=== PATIENT | female | born 1940 | race Caucasian/White ===

== ENCOUNTER → 2016-08-18 | Outpatient (CLI) | payer MEDICARE ==
--- NOTE | 2016-08-19 11:43 | MM ---
Reason for exam: screening (asymptomatic). Physical Findings: A clinical breast exam by your physician is recommended on an annual basis and results should be correlated with mammographic findings. MG Screening Mammo w CAD Bilateral CC and MLO view(s) were taken. No prior studies available for comparison. The breast tissue is heterogeneously dense. This may lower the sensitivity of mammography. Finding: There are typically benign vascular, round, coarse, diffuse/scattered calcifications in both breasts. There is no dominant lesion. ASSESSMENT: Benign, BI-RAD 2 RECOMMENDATION: Routine screening mammogram of both breasts in 1 year.
== END | disposition home or self-care (01) ==
LOC: RADMAMWWP 10:34
PROVIDERS: ATTEND Internal Medicine
DX: Z12.31 Encounter for screening mammogram for malignant neoplasm of breast (principal)

== ENCOUNTER 2016-12-14 13:00 | Inpatient (IN) | payer MEDICARE ==
[2016-12-14] MEDS ORDERED: PANTOPRAZOLE 40 MG/10 ML VIAL IVP STA (13:51)
--- NOTE | 2016-12-14 13:56 | ED ---
General Adult HPI - General Chief complaint: Recheck/Abnormal Lab/Rx Stated complaint: low blood pressure/wounds on legs Time Seen by Provider: 12/14/16 13:30 Source: patient, family, RN notes reviewed Mode of arrival: wheelchair Limitations: altered mental status - History of Present Illness Initial comments: Patient is a pleasantly demented 76-year-old female presenting to the emergency department with concerns for GI bleed and low blood pressure. Patient is extremely poor historian. Patient admits to having some swelling of her legs and fatigue however offers no further significant history. Apparently there was some concern for lower GI bleed. Niece and are present who are also poor historians and have little ability to offer information. Unclear how long bleeding has been 4. Patient does have reported leg wounds that she has been seen her doctor for for a few weeks. Patient had visiting nurse come to the house today for the first time. - Related Data Home Medications Medication Instructions Recorded Confirmed Atorvastatin [Lipitor] 40 mg PO DAILY 02/07/14 12/14/16 Carvedilol [Coreg*] 12.5 mg PO BID 02/07/14 12/14/16 amLODIPine BESYLATE [Norvasc] 5 mg PO DAILY 02/07/14 12/14/16 Amiodarone [Cordarone] 200 mg PO DAILY 05/23/14 12/14/16 Rivaroxaban [Xarelto] 20 mg PO DAILY 05/23/14 12/14/16 Spironolactone [Aldactone] 25 mg PO DAILY 05/23/14 12/14/16 Aspirin EC [Ecotrin Low Dose] 81 mg PO DAILY 12/14/16 12/14/16 Benzonatate [Tessalon Perles] 200 mg PO TID PRN 12/14/16 12/14/16 Furosemide [Lasix] 40 mg PO DAILY 12/14/16 12/14/16 Allergies Allergy/AdvReac Type Severity Reaction Status Date / Time adhesive Allergy Intermediate SKIN Verified 12/14/16 14:47 BLISTERS epinephrine AdvReac Severe Rapid Verified 12/14/16 14:47 Heart Rate codeine AdvReac Intermediate Nausea & Verified 12/14/16 14:47 Vomiting Review of Systems ROS Statement: Those systems with pertinent positive or pertinent negative responses have been documented in the HPI. ROS Other: All systems not noted in ROS Statement are negative. Constitutional: Denies: fever Eyes: Denies: eye pain ENT: Denies: ear pain Respiratory: Denies: cough Cardiovascular: Denies: chest pain Endocrine: Reports: fatigue Gastrointestinal: Reports: melena. Denies: abdominal pain Genitourinary: Denies: urgency Skin: Denies: rash Neurological: Denies: headache Past Medical History Past Medical History: Coronary Artery Disease (CAD), Chest Pain / Angina, Heart Failure, Hearing Disorder / Deafness, Hypertension Additional Past Medical History / Comment(s): choleycystectomy,2 stents heart, tubal preg.,teeth removed,arthritis History of Any Multi-Drug Resistant Organisms: None Reported Past Surgical History: Cholecystectomy, Heart Catheterization With Stent, Tubal Ligation Additional Past Surgical History / Comment(s): teeth removed Past Anesthesia/Blood Transfusion Reactions: No Reported Reaction Additional Past Anesthesia/Blood Transfusion Reaction / Comment(s): trouble recovering after choley. Date of Last Stent Placement:: 09/08/2010 Past Psychological History: No Psychological Hx Reported Smoking Status: Never smoker Past Drug Use History: None Reported - Past Family History Father Family Medical History: No Reported History Mother Family Medical History: Coronary Artery Disease (CAD) Additional Family Medical History / Comment(s): venous insufficiency General Exam Limitations: no limitations General appearance: alert, in no apparent distress Head exam: Present: atraumatic Eye exam: Present: normal appearance, PERRL, other (Pale conjunctiva) ENT exam: Present: normal oropharynx Neck exam: Present: normal inspection. Absent: tenderness Respiratory exam: Present: normal lung sounds bilaterally Cardiovascular Exam: Present: regular rate, normal rhythm, systolic murmur GI/Abdominal exam: Present: soft. Absent: distended, tenderness Rectal exam: Present: normal inspection (Normal appearing stool) Extremities exam: Present: pedal edema (+3 bilateral), other (Multiple bilateral lower leg wounds stage I through stage III. There is approximately 5 areas of small bullae.) Neurological exam: Present: alert, altered Expanded Patient oriented to: Present: time Psychiatric exam: Present: normal affect, normal mood Skin exam: Absent: rash Course Vital Signs 12/14/16 12/14/16 12/14/16 13:02 13:45 14:15 Temperature 97.2 F L Pulse Rate 60 72 68 Respiratory 18 16 14 Rate Blood Pressure 120/58 175/75 137/61 O2 Sat by Pulse 95 98 100 Oximetry 12/14/16 14:49 Temperature 97.3 F L Pulse Rate 67 Respiratory 15 Rate Blood Pressure 139/61 O2 Sat by Pulse 100 Oximetry - Reevaluation(s) Reevaluation #1: 12/14/16 15:42 Patient reevaluated. Patient and family updated. Case discussed with Dr. Mondragon. Admission orders written. Cardiology consult placed. Dr. toledo has been paged for admission for Dr. Mondragon. 12/14/16 15:44 Cardiology has been paged regarding whether or not to use heparin. Patient has arty on Xarelto. 12/14/16 15:45 Case discussed with practitioner Velma, who will admit for Dr. toledo. 12/14/16 15:49 Dr. Bryant is currently doing a procedure and will call back. EKG Findings - EKG Comments: EKG Findings:: Normal sinus rhythm 65. ND 204, first degree AV block. QRS 88. QT 462. QTC 480. Normal axis. Normal QRS. Nonspecific ST-T. Medical Decision Making - Lab Data Result diagrams: 12/14/16 13:45 12/14/16 13:45 Lab Results 12/14/16 12/14/16 12/14/16 Range/Units 13:45 13:45 13:45 WBC 7.9 (3.8-10.6) k/uL RBC 3.52 L (3.80-5.40) m/uL Hgb 10.8 L (11.4-16.0) gm/dL Hct 34.6 (34.0-46.0) % MCV 98.4 (80.0-100.0) fL MCH 30.7 (25.0-35.0) pg MCHC 31.2 (31.0-37.0) g/dL RDW 14.4 (11.5-15.5) % Plt Count 282 (150-450) k/uL Neutrophils % 58 % Lymphocytes % 19 % Monocytes % 9 % Eosinophils % 12 % Basophils % 1 % Neutrophils # 4.6 (1.3-7.7) k/uL Lymphocytes # 1.5 (1.0-4.8) k/uL Monocytes # 0.7 (0-1.0) k/uL Eosinophils # 0.9 H (0-0.7) k/uL Basophils # 0.0 (0-0.2) k/uL PT (9.0-12.0) sec INR (<1.1) APTT (22.0-30.0) sec Sodium 139 (137-145) mmol/L Potassium 3.9 (3.5-5.1) mmol/L Chloride 107 (98-107) mmol/L Carbon Dioxide 25 (22-30) mmol/L Anion Gap 7 mmol/L BUN 19 H (7-17) mg/dL Creatinine 1.02 (0.52-1.04) mg/dL Est GFR (MDRD) Af Amer >60 (>60 ml/min/1.73 sqM) Est GFR (MDRD) Non-Af 53 (>60 ml/min/1.73 sqM) Glucose 100 H (74-99) mg/dL Calcium 8.4 (8.4-10.2) mg/dL Total Bilirubin 0.9 (0.2-1.3) mg/dL AST 33 (14-36) U/L ALT 30 (9-52) U/L Alkaline Phosphatase 91 (38-126) U/L Total Creatine Kinase 103 (30-135) U/L CK-MB (CK-2) 1.4 (0.0-2.4) ng/mL CK-MB (CK-2) Rel Index 1.4 Troponin I 0.426 H* (0.000-0.034) ng/mL Total Protein 5.9 L (6.3-8.2) g/dL Albumin 2.8 L (3.5-5.0) g/dL Stool Occult Blood (Negative) 12/14/16 12/14/16 Range/Units 13:45 13:45 WBC (3.8-10.6) k/uL RBC (3.80-5.40) m/uL Hgb (11.4-16.0) gm/dL Hct (34.0-46.0) % MCV (80.0-100.0) fL MCH (25.0-35.0) pg MCHC (31.0-37.0) g/dL RDW (11.5-15.5) % Plt Count (150-450) k/uL Neutrophils % % Lymphocytes % % Monocytes % % Eosinophils % % Basophils % % Neutrophils # (1.3-7.7) k/uL Lymphocytes # (1.0-4.8) k/uL Monocytes # (0-1.0) k/uL Eosinophils # (0-0.7) k/uL Basophils # (0-0.2) k/uL PT 17.2 H (9.0-12.0) sec INR 1.8 (<1.1) APTT 34.4 H (22.0-30.0) sec Sodium (137-145) mmol/L Potassium (3.5-5.1) mmol/L Chloride (98-107) mmol/L Carbon Dioxide (22-30) mmol/L Anion Gap mmol/L BUN (7-17) mg/dL Creatinine (0.52-1.04) mg/dL Est GFR (MDRD) Af Amer (>60 ml/min/1.73 sqM) Est GFR (MDRD) Non-Af (>60 ml/min/1.73 sqM) Glucose (74-99) mg/dL Calcium (8.4-10.2) mg/dL Total Bilirubin (0.2-1.3) mg/dL AST (14-36) U/L ALT (9-52) U/L Alkaline Phosphatase (38-126) U/L Total Creatine Kinase (30-135) U/L CK-MB (CK-2) (0.0-2.4) ng/mL CK-MB (CK-2) Rel Index Troponin I (0.000-0.034) ng/mL Total Protein (6.3-8.2) g/dL Albumin (3.5-5.0) g/dL Stool Occult Blood Negative (Negative) Disposition Clinical Impression: Leg wound, right, Leg wound, left, Hypotensive episode, Elevated troponin Disposition: ADMITTED IP TO THIS HOSP Referrals: Dong Birmingham MD [Primary Care Provider] - 1-2 days Time of Disposition: 15:47
[2016-12-14 15:03] LABS: Partial Thromboplastin Time 34.4 sec (22.0-30.0)
[2016-12-14 15:04] LABS: ALT 30 U/L (9-52); AST 33 U/L (14-36); Alkaline Phosphatase 91 U/L (38-126); Anion Gap 7 mmol/L; Blood Urea Nitrogen 19 mg/dL (7-17); Calcium 8.4 mg/dL (8.4-10.2); Carbon Dioxide 25 mmol/L (22-30); Chloride 107 mmol/L (98-107); Glucose 100 mg/dL (74-99); Non-African American GFR(MDRD) 53 (>60 ml/min/1.73 sqM); Potassium 3.9 mmol/L (3.5-5.1); Sodium 139 mmol/L (137-145); Total Bilirubin 0.9 mg/dL (0.2-1.3); Total Protein 5.9 g/dL (6.3-8.2)
[2016-12-14 15:09] LABS: Basophils % (A) 1 %; CH 31.3; Eosinophils # (A) 0.9 k/uL (0-0.7); Eosinophils % (A) 12 %; HCT 34.6 % (34.0-46.0); HDW 2.49; HGB 10.8 gm/dL (11.4-16.0); Luc # (Auto) 0.19; Luc % (Auto) 2; Lymphocytes # (A) 1.5 k/uL (1.0-4.8); Lymphocytes % (A) 19 %; MCH 30.7 pg (25.0-35.0); MCHC 31.2 g/dL (31.0-37.0); MCV 98.4 fL (80.0-100.0); Mean Platelet Volume 7.4; Monocytes # (A) 0.7 k/uL (0-1.0); Monocytes % (A) 9 %; Neutrophils # (A) 4.6 k/uL (1.3-7.7); Neutrophils % (A) 58 %; RBC 3.52 m/uL (3.80-5.40); RDW 14.4 % (11.5-15.5); WBC 7.9 k/uL (3.8-10.6); WBC (Perox) 8.83
[2016-12-14 15:10] LABS: INR 1.8 (<1.1); Prothrombin Time 17.2 sec (9.0-12.0)
[2016-12-14 15:31] LABS: Creatine Kinase MB 1.4 ng/mL (0.0-2.4)
[2016-12-14 15:36] LABS: Troponin I 0.426 ng/mL (0.000-0.034)
[2016-12-14] MEDS ORDERED: NITROGLYCERIN SL TABS 0.4 MG TAB SUBLINGUAL PRN (15:47)
[2016-12-14] MEDS ORDERED: ASPIRIN 81 MG CHEW PO STA (15:47)
--- NOTE | 2016-12-14 16:14 | XR ---
EXAMINATION TYPE: XR chest 2V DATE OF EXAM: 12/14/2016 4:09 PM COMPARISON: 05/15/2014 INDICATION: Open wound on leg TECHNIQUE: 2 view chest FINDINGS: The heart size is enlarged. The pulmonary vasculature is normal. No suspicious focal consolidation is evident. IMPRESSION: 1. Cardiomegaly
[2016-12-14] MEDS ORDERED: FUROSEMIDE 10 MG/ML 4 ML VIAL IV STA (16:47)
[2016-12-14] MEDS: NITROGLYCERIN OINT 1 INCH/GM PACKET TOPICAL SCH (17:27)
--- NOTE | 2016-12-14 17:48 | P.PN ---
Progress Note - Text Page per Dr. Quigley regarding this patient. 76-year-old female evaluated by visiting nurse with dementia who was brought in for possible GI bleed because of dark stools and low blood pressure. Hemoglobin is stable. Leg wounds leg ulcers , patient unable to give a history , family is not able to give a history No evidence for low blood pressure here, no evidence for tachycardia Hemoglobin 10.8 Stage III kidney disease Unclear as to why her troponin level was sent Troponin 0.4 We will reevaluate the patient later
[2016-12-14] MEDS ORDERED: BENZONATATE 100 MG CAP PO PRN (21:43)
[2016-12-15] MEDS: NITROGLYCERIN OINT 1 INCH/GM PACKET TOPICAL SCH ×5 (01:25→23:12)
[2016-12-15] MEDS: CARVEDILOL 12.5 MG TAB PO SCH ×2 (06:32→15:41)
[2016-12-15 07:40] LABS: Cholesterol 171 mg/dL (<200); HDL Cholesterol 28 mg/dL (40-60); Triglycerides 128 mg/dL (<150)
[2016-12-15] MEDS: SPIRONOLACTONE 25 MG TAB PO SCH (08:34)
[2016-12-15] MEDS: AMIODARONE 200 MG TAB PO SCH (08:34)
[2016-12-15] MEDS: ATORVASTATIN 40 MG TAB PO SCH (08:34)
[2016-12-15] MEDS: FUROSEMIDE 40 MG TAB PO SCH (08:34)
[2016-12-15] MEDS: amLODIPine 5 MG TAB PO SCH ×2 (08:34→11:21)
[2016-12-15] MEDS ORDERED: RIVAROXABAN 10 MG TAB PO SCH (09:00)
[2016-12-15] MEDS ORDERED: ASPIRIN 325 MG TAB PO SCH (09:00)
--- NOTE | 2016-12-15 09:24 | P.CONS ---
History of Present Illness - Reason for Consult Consult date: 12/15/16 Lower extremity wounds - History of Present Illness This is a 76-year-old female who recently started seen Dr. Hernandez in the wound healing Center for venous stasis ulcers to bilateral lower extremities. Her visit there was on December 11 and she underwent an I&D and current wound care is Aquasol with foam compression dressing. Home care had been arranged. Patient was brought into [facility] emergency center due to concerns for GI bleed and low blood pressure and leg swelling. Chest x-ray showed cardiomegaly. It is noted she has history of paroxysmal atrial fibrillation and is on amiodarone and Xarelto. Her hemoglobin was 10.8. White count 7.9. Troponin was 0.4-6. Occult blood was negative. BUN 19 and creatinine 1.02 with GFR of 53. Patient has been admitted to the selective care unit. She has been seen by Dr. Bryant. Patient is currently in a sinus rhythm. Patient denies any problems with her legs or increased pain to her legs. Review of Systems All systems: negative Constitutional: Denies chills, Denies fever Eyes: denies blurred vision, denies pain Ears, nose, mouth and throat: Denies dental pain, Denies headache, Denies mouth pain, Denies sore throat Cardiovascular: Denies chest pain, Denies dyspnea on exertion, Denies edema, Denies lightheadedness, Denies shortness of breath, Denies syncope Respiratory: Denies cough, Denies cough with sputum, Denies dyspnea, Denies excessive sputum, Denies hemoptysis, Denies home oxygen Gastrointestinal: Denies abdominal pain, Denies diarrhea, Denies melena, Denies nausea, Denies vomiting Genitourinary: Denies dysuria, Denies hematuria Musculoskeletal: Denies myalgias Integumentary: Reports wounds, Denies pruritus, Denies rash Neurological: Denies numbness, Denies weakness Psychiatric: Denies anxiety, Denies depression Endocrine: Denies fatigue, Denies weight change Past Medical History Past Medical History: Asthma, Coronary Artery Disease (CAD), Chest Pain / Angina , Hearing Disorder / Deafness, Hyperlipidemia, Hypertension, Osteoarthritis (OA) Additional Past Medical History / Comment(s): pt poor historian most info taken from [facility].PAST tubal preg,migraines, afib,migraines,c/p,gerd,murmur,lumbee, few teeth left, "stumbles easily" History of Any Multi-Drug Resistant Organisms: None Reported Past Surgical History: Cholecystectomy, Heart Catheterization With Stent, Tubal Ligation Additional Past Surgical History / Comment(s): tooth extractions, 04/2014 waqas/ cardioversion for a fib,d&c(past tubal pregancy) Past Anesthesia/Blood Transfusion Reactions: No Reported Reaction Additional Past Anesthesia/Blood Transfusion Reaction / Comm: trouble recovering after choley. Date of Last Stent Placement:: 09/08/2010 Past Psychological History: No Psychological Hx Reported Additional Psychological History / Comment(s): lives with and 1 pet dog. Smoking Status: Never smoker Past Alcohol Use History: None Reported Past Drug Use History: None Reported - Past Family History Father Family Medical History: No Reported History Mother Family Medical History: Coronary Artery Disease (CAD) Additional Family Medical History / Comment(s): venous insufficiency Medications and Allergies Home Medications Medication Instructions Recorded Confirmed Type Atorvastatin [Lipitor] 40 mg PO DAILY 02/07/14 12/14/16 History Carvedilol [Coreg*] 12.5 mg PO BID 02/07/14 12/14/16 History amLODIPine BESYLATE [Norvasc] 5 mg PO DAILY 02/07/14 12/14/16 History Amiodarone [Cordarone] 200 mg PO DAILY 05/23/14 12/14/16 History Rivaroxaban [Xarelto] 20 mg PO DAILY 05/23/14 12/14/16 History Spironolactone [Aldactone] 25 mg PO DAILY 05/23/14 12/14/16 History Aspirin EC [Ecotrin Low Dose] 81 mg PO DAILY 12/14/16 12/14/16 History Benzonatate [Tessalon Perles] 200 mg PO TID PRN 12/14/16 12/14/16 History Furosemide [Lasix] 40 mg PO DAILY 12/14/16 12/14/16 History Allergies Allergy/AdvReac Type Severity Reaction Status Date / Time adhesive Allergy Intermediate SKIN Verified 12/14/16 14:47 BLISTERS epinephrine AdvReac Severe Rapid Verified 12/14/16 14:47 Heart Rate codeine AdvReac Intermediate Nausea & Verified 12/14/16 14:47 Vomiting Physical Exam Vitals: Vital Signs Temp Pulse Pulse Resp BP BP Pulse Ox 12/15/16 08:00 97.4 F L 61 16 101/47 96 12/15/16 04:00 97.2 F L 63 16 128/57 98 12/15/16 00:00 97.2 F L 69 16 109/57 96 12/14/16 20:00 97.9 F 58 L 16 114/58 98 12/14/16 17:56 97.4 F L 63 18 141/63 95 12/14/16 17:29 67 16 99 12/14/16 16:56 97.3 F L 63 18 171/69 97 12/14/16 15:58 66 17 143/62 100 12/14/16 14:49 97.3 F L 67 15 139/61 100 12/14/16 14:15 68 14 137/61 100 12/14/16 13:45 72 16 175/75 98 12/14/16 13:02 97.2 F L 60 18 120/58 95 Intake and Output 12/14/16 12/15/16 12/15/16 22:59 06:59 14:59 Intake Total 10 10 360 Output Total 950 Balance 10 -940 360 Intake: IV 10 10 0.9% NS FLUSH 10 mL 10 10 Oral 360 Output: Urine 950 Other: Voiding Method Toilet # Voids 2 Weight 85.9 kg Gen: This is a 76-year-old morbidly obese female. She is lying in bed and appears to be in no acute distress. No respiratory distress is noted. Patient was sleeping and awakens easily to verbal stimuli. HEENT: Head is atraumatic, normocephalic. Pupils equal, round. Sclerae is anicteric. Oral mucous membranes are slightly dry. NECK: Supple. No JVD. No lymphadenopathy. No thyromegaly. LUNGS: Clear to auscultation. No wheezes or rhonchi. No intercostal retractions. HEART: Regular rate and rhythm. Harsh systolic murmur left sternal border. ABDOMEN: Soft. Bowel sounds are present. No masses. No tenderness. EXTREMITIES: 3+ bilateral pedal edema. Dressings in place to the bilateral lower extremity is not removed for evaluation. Evaluation deferred to Dr. Gupta.. NEUROLOGICAL: Patient is awake, alert and oriented x1. Cranial nerves 2 through 12 are grossly intact. Results Results: Laboratory Results WBC 7.9 k/uL (3.8-10.6) 12/14/16 13:45 RBC 3.52 m/uL (3.80-5.40) L 12/14/16 13:45 Hgb 10.8 gm/dL (11.4-16.0) L 12/14/16 13:45 Hct 34.6 % (34.0-46.0) 12/14/16 13:45 MCV 98.4 fL (80.0-100.0) 12/14/16 13:45 MCH 30.7 pg (25.0-35.0) 12/14/16 13:45 MCHC 31.2 g/dL (31.0-37.0) 12/14/16 13:45 RDW 14.4 % (11.5-15.5) 12/14/16 13:45 Plt Count 282 k/uL (150-450) 12/14/16 13:45 Neutrophils % 58 % 12/14/16 13:45 Lymphocytes % 19 % 12/14/16 13:45 Monocytes % 9 % 12/14/16 13:45 Eosinophils % 12 % 12/14/16 13:45 Basophils % 1 % 12/14/16 13:45 Neutrophils # 4.6 k/uL (1.3-7.7) 12/14/16 13:45 Lymphocytes # 1.5 k/uL (1.0-4.8) 12/14/16 13:45 Monocytes # 0.7 k/uL (0-1.0) 12/14/16 13:45 Eosinophils # 0.9 k/uL (0-0.7) H 12/14/16 13:45 Basophils # 0.0 k/uL (0-0.2) 12/14/16 13:45 PT 17.2 sec (9.0-12.0) H 12/14/16 13:45 INR 1.8 (<1.1) 12/14/16 13:45 APTT 34.4 sec (22.0-30.0) H 12/14/16 13:45 Sodium 139 mmol/L (137-145) 12/14/16 13:45 Potassium 3.9 mmol/L (3.5-5.1) 12/14/16 13:45 Chloride 107 mmol/L (98-107) 12/14/16 13:45 Carbon Dioxide 25 mmol/L (22-30) 12/14/16 13:45 Anion Gap 7 mmol/L 12/14/16 13:45 BUN 19 mg/dL (7-17) H 12/14/16 13:45 Creatinine 1.02 mg/dL (0.52-1.04) 12/14/16 13:45 Est GFR (MDRD) Af Amer >60 (>60 ml/min/1.73 sqM) 12/14/16 13:45 Est GFR (MDRD) Non-Af 53 (>60 ml/min/1.73 sqM) 12/14/16 13:45 Glucose 100 mg/dL (74-99) H 12/14/16 13:45 Calcium 8.4 mg/dL (8.4-10.2) 12/14/16 13:45 Total Bilirubin 0.9 mg/dL (0.2-1.3) 12/14/16 13:45 AST 33 U/L (14-36) 12/14/16 13:45 ALT 30 U/L (9-52) 12/14/16 13:45 Alkaline Phosphatase 91 U/L (38-126) 12/14/16 13:45 Total Creatine Kinase 103 U/L (30-135) 12/14/16 13:45 CK-MB (CK-2) 1.4 ng/mL (0.0-2.4) 12/14/16 13:45 CK-MB (CK-2) Rel Index 1.4 12/14/16 13:45 Troponin I 0.426 ng/mL (0.000-0.034) H* 12/14/16 13:45 NT-Pro-B Natriuret Pep 3190 pg/mL 12/14/16 13:45 Total Protein 5.9 g/dL (6.3-8.2) L 12/14/16 13:45 Albumin 2.8 g/dL (3.5-5.0) L 12/14/16 13:45 Triglycerides 128 mg/dL (<150) 12/15/16 06:23 Cholesterol 171 mg/dL (<200) 12/15/16 06:23 LDL Cholesterol, Calc 117 mg/dL (0-99) H 12/15/16 06:23 HDL Cholesterol 28 mg/dL (40-60) L 12/15/16 06:23 Stool Occult Blood Negative (Negative) 12/14/16 13:45 CBC & Chem 7: 12/14/16 13:45 12/14/16 13:45 Labs: Abnormal Lab Results - Last 24 Hours (Table) 12/14/16 12/14/16 12/14/16 Range/Units 13:45 13:45 13:45 RBC 3.52 L (3.80-5.40) m/uL Hgb 10.8 L (11.4-16.0) gm/dL Eosinophils # 0.9 H (0-0.7) k/uL PT (9.0-12.0) sec APTT (22.0-30.0) sec BUN 19 H (7-17) mg/dL Glucose 100 H (74-99) mg/dL Troponin I 0.426 H* (0.000-0.034) ng/mL Total Protein 5.9 L (6.3-8.2) g/dL Albumin 2.8 L (3.5-5.0) g/dL LDL Cholesterol, Calc (0-99) mg/dL HDL Cholesterol (40-60) mg/dL 12/14/16 12/15/16 Range/Units 13:45 06:23 RBC (3.80-5.40) m/uL Hgb (11.4-16.0) gm/dL Eosinophils # (0-0.7) k/uL PT 17.2 H (9.0-12.0) sec APTT 34.4 H (22.0-30.0) sec BUN (7-17) mg/dL Glucose (74-99) mg/dL Troponin I (0.000-0.034) ng/mL Total Protein (6.3-8.2) g/dL Albumin (3.5-5.0) g/dL LDL Cholesterol, Calc 117 H (0-99) mg/dL HDL Cholesterol 28 L (40-60) mg/dL Assessment and Plan Plan: This is a 76-year-old female who presented to the hospital with possible GI bleed. She does have history of paroxysmal atrial fibrillation and is on amiodarone and Xarelto. Patient has seen Dr. Hernandez on one visit for venous stasis ulcers to the bilateral lower extremities and current wound care is Aquasol with foam compressive dressing. No antibiotics are currently in place. Local wound care will be addressed. Continue supportive care. Further recommendations as patient progresses. The above dictated assessment and findings were discussed with Dr. Gupta. The impression and plan of care have been directed as dictated. Racquel Nelson nurse practitioner acting as scribe for Dr. Gupta.
--- NOTE | 2016-12-15 12:27 | P.CRDCN ---
<Brooke Harman E - Last Filed: 12/15/16 12:06> History of Present Illness Consult date: 12/15/16 Requesting physician: Joseph Quiroz Reason for Consult (text): Abnormal troponin Chief complaint: Bilateral leg swelling History of present illness: This is a 76-year-old female with history of dementia, most of the history was obtained from the who is at bedside. He states that the patient was brought to the hospital because of bilateral leg swelling and ulcerations. Apparently there were troponins drawn came back to be abnormal and for this reason a cardiology consultation was requested. Denies any chest pain this morning, according to the she has not been experiencing any chest pain. Patient does have a history of hypertension, hyperlipidemia, prior stent placement, paroxysmal atrial fibrillation, on xarelto at home. Patient is also on Cordarone, Lipitor, Coreg, Lasix, Aldactone, and Norvasc. Most recent echocardiogram with Doppler study performed in 2013 revealed a normal left ventricular systolic function. Pressure on arrival 120/50 with a heart rate in the 60s to 70s, 95% on room air. [place]in on admission 10.8, INR 1.8, ataxia and 3.9, BUN 19, creatinine 1.02. Troponin 0.426. BNP level 3190. The time of my examination, patient is lying comfortably in bed, no complaints. Past Medical History Past Medical History: Asthma, Coronary Artery Disease (CAD), Chest Pain / Angina , Hearing Disorder / Deafness, Hyperlipidemia, Hypertension, Osteoarthritis (OA) Additional Past Medical History / Comment(s): pt poor historian most info taken from [facility].PAST tubal preg,migraines, afib,migraines,c/p,gerd,murmur,[place], few teeth left, "stumbles easily" History of Any Multi-Drug Resistant Organisms: None Reported Past Surgical History: Cholecystectomy, Heart Catheterization With Stent, Tubal Ligation Additional Past Surgical History / Comment(s): tooth extractions, 04/2014 waqas/ cardioversion for a fib,d&c(past tubal pregancy) Past Anesthesia/Blood Transfusion Reactions: No Reported Reaction Additional Past Anesthesia/Blood Transfusion Reaction / Comment(s): trouble recovering after choley. Date of Last Stent Placement:: 09/08/2010 Past Psychological History: No Psychological Hx Reported Additional Psychological History / Comment(s): lives with and 1 pet dog. Smoking Status: Never smoker Past Alcohol Use History: None Reported Past Drug Use History: None Reported - Past Family History Father Family Medical History: No Reported History Mother Family Medical History: Coronary Artery Disease (CAD) Additional Family Medical History / Comment(s): venous insufficiency Medications and Allergies Home Medications Medication Instructions Recorded Confirmed Type Atorvastatin [Lipitor] 40 mg PO DAILY 02/07/14 12/14/16 History Carvedilol [Coreg*] 12.5 mg PO BID 02/07/14 12/14/16 History amLODIPine BESYLATE [Norvasc] 5 mg PO DAILY 02/07/14 12/14/16 History Amiodarone [Cordarone] 200 mg PO DAILY 05/23/14 12/14/16 History Rivaroxaban [Xarelto] 20 mg PO DAILY 05/23/14 12/14/16 History Spironolactone [Aldactone] 25 mg PO DAILY 05/23/14 12/14/16 History Aspirin EC [Ecotrin Low Dose] 81 mg PO DAILY 12/14/16 12/14/16 History Benzonatate [Tessalon Perles] 200 mg PO TID PRN 12/14/16 12/14/16 History Furosemide [Lasix] 40 mg PO DAILY 12/14/16 12/14/16 History Allergies Allergy/AdvReac Type Severity Reaction Status Date / Time adhesive Allergy Intermediate SKIN Verified 12/14/16 14:47 BLISTERS epinephrine AdvReac Severe Rapid Verified 12/14/16 14:47 Heart Rate codeine AdvReac Intermediate Nausea & Verified 12/14/16 14:47 Vomiting Physical Exam Vitals: Vital Signs Temp Pulse Pulse Resp BP BP Pulse Ox 12/15/16 11:22 97 F L 58 L 16 106/51 96 12/15/16 08:00 97.4 F L 61 16 101/47 96 12/15/16 04:00 97.2 F L 63 16 128/57 98 12/15/16 00:00 97.2 F L 69 16 109/57 96 12/14/16 20:00 97.9 F 58 L 16 114/58 98 12/14/16 17:56 97.4 F L 63 18 141/63 95 12/14/16 17:29 67 16 99 12/14/16 16:56 97.3 F L 63 18 171/69 97 12/14/16 15:58 66 17 143/62 100 12/14/16 14:49 97.3 F L 67 15 139/61 100 12/14/16 14:15 68 14 137/61 100 12/14/16 13:45 72 16 175/75 98 12/14/16 13:02 97.2 F L 60 18 120/58 95 Intake and Output 12/14/16 12/15/16 12/15/16 22:59 06:59 14:59 Intake Total 10 10 360 Output Total 950 Balance 10 -940 360 Intake: IV 10 10 0.9% NS FLUSH 10 mL 10 10 Oral 360 Output: Urine 950 Other: Voiding Method Toilet # Voids 2 Weight 85.9 kg 85.9 kg Patient Weight 12/16/16 06:59 Weight 85.9 kg PHYSICAL EXAMINATION: HEENT: Head is atraumatic, normocephalic. Pupils equal, round. Neck is supple. There is no elevated jugular venous pressure. HEART EXAMINATION: S1 and S2 irregularly irregular a systolic ejection murmur is heard. CHEST EXAMINATION: Lungs are clear to auscultation and precussion. No chest wall tenderness is noted on palpation or with deep breathing. ABDOMEN: Soft, nontender. Bowel sounds are heard. No organomegaly noted. EXTREMITIES: 2+ peripheral pulses with evidence of peripheral edema and no calf tenderness noted. Bilateral dressings and wraps in place NEUROLOGIC patient is awake, alert and oriented -3. . Results 12/14/16 13:45 12/14/16 13:45 Cardiac Enzymes 12/14/16 12/14/16 Range/Units 13:45 13:45 AST 33 (14-36) U/L CK-MB (CK-2) 1.4 (0.0-2.4) ng/mL Troponin I 0.426 H* (0.000-0.034) ng/mL Coagulation 12/14/16 Range/Units 13:45 PT 17.2 H (9.0-12.0) sec APTT 34.4 H (22.0-30.0) sec Lipids 12/15/16 Range/Units 06:23 Triglycerides 128 (<150) mg/dL Cholesterol 171 (<200) mg/dL HDL Cholesterol 28 L (40-60) mg/dL CBC 12/14/16 Range/Units 13:45 WBC 7.9 (3.8-10.6) k/uL RBC 3.52 L (3.80-5.40) m/uL Hgb 10.8 L (11.4-16.0) gm/dL Hct 34.6 (34.0-46.0) % Plt Count 282 (150-450) k/uL Comprehensive Metabolic Panel 12/14/16 Range/Units 13:45 Sodium 139 (137-145) mmol/L Potassium 3.9 (3.5-5.1) mmol/L Chloride 107 (98-107) mmol/L Carbon Dioxide 25 (22-30) mmol/L BUN 19 H (7-17) mg/dL Creatinine 1.02 (0.52-1.04) mg/dL Glucose 100 H (74-99) mg/dL Calcium 8.4 (8.4-10.2) mg/dL AST 33 (14-36) U/L ALT 30 (9-52) U/L Alkaline Phosphatase 91 (38-126) U/L Total Protein 5.9 L (6.3-8.2) g/dL Albumin 2.8 L (3.5-5.0) g/dL Current Medications Generic Name Dose Route Start Last Admin Trade Name Freq PRN Reason Stop Dose Admin Amiodarone HCl 200 mg 12/15/16 09:00 12/15/16 08:34 Cordarone PO 200 mg DAILY NIRMALA Administration Amlodipine Besylate 5 mg 12/15/16 09:00 12/15/16 11:21 Norvasc PO Not Given DAILY NIRMALA Aspirin 325 mg 12/15/16 09:00 12/15/16 08:34 Aspirin PO 325 mg DAILY NIRMALA Administration Atorvastatin Calcium 40 mg 12/15/16 09:00 12/15/16 08:34 Lipitor PO 40 mg DAILY NIRMALA Administration Benzonatate 200 mg 12/14/16 21:43 Tessalon Perles PO TID PRN Cough Carvedilol 12.5 mg 12/15/16 07:30 12/15/16 06:32 Coreg PO 12.5 mg BID-W/MEALS NIRMALA Administration Furosemide 40 mg 12/15/16 09:00 12/15/16 08:34 Lasix PO 40 mg DAILY NIRMALA Administration Nitroglycerin 1 inch 12/14/16 18:00 12/15/16 11:21 Nitro-Bid Oint TOPICAL Not Given Q6HR NIRMALA Nitroglycerin 0.4 mg 12/14/16 15:47 Nitrostat SUBLINGUAL Q5M PRN Chest Pain Rivaroxaban 20 mg 12/15/16 09:00 12/15/16 08:34 Xarelto PO 20 mg DAILY NIRMALA Administration Sodium Chloride 10 ml 12/14/16 21:00 12/15/16 08:45 Saline Flush IV Not Given BID NIRMALA Spironolactone 25 mg 12/15/16 09:00 12/15/16 08:34 Aldactone PO 25 mg DAILY NIRMALA Administration Intake and Output 12/14/16 12/15/16 12/15/16 22:59 06:59 14:59 Intake Total 10 10 360 Output Total 950 Balance 10 -940 360 Intake: IV 10 10 0.9% NS FLUSH 10 mL 10 10 Oral 360 Output: Urine 950 Other: Voiding Method Toilet # Voids 2 Weight 85.9 kg 85.9 kg Patient Weight 12/16/16 06:59 Weight 85.9 kg 12/14/16 13:45 12/14/16 13:45 EKG Interpretations (text) EKG shows normal sinus rhythm with nonspecific ST-T wave changes Assessment and Plan Plan: Assessment and plan #1 bilateral leg ulcerations and swelling #2 abnormal troponin, patient denies having any chest pain, EKG shows normal sinus rhythm with nonspecific ST-T wave changes. #3 paroxysmal atrial fibrillation, on xarelto at home. Patient currently in normal sinus rhythm. #4 dementia # 5 hypertension #6 hyperlipidemia #7 coronary artery disease with prior stenting of the LAD #8 anemia, rule out GI bleed. Plan We will obtain a repeat echocardiogram with Doppler study and maximize the patient's medical therapy. We'll decrease the Xarelto dose, and also decrease aspirin to 81 mg daily. Patient is not a candidate for any invasive procedures. Medications to follow. DNP note has been reviewed, I agree with a documented findings and plan of care. Patient was seen and examined. <Mateo Bryant - Last Filed: 12/15/16 13:32> Physical Exam Vitals: Vital Signs Temp Pulse Pulse Resp BP BP Pulse Ox 12/15/16 11:22 97 F L 58 L 16 106/51 96 12/15/16 08:00 97.4 F L 61 16 101/47 96 12/15/16 04:00 97.2 F L 63 16 128/57 98 12/15/16 00:00 97.2 F L 69 16 109/57 96 12/14/16 20:00 97.9 F 58 L 16 114/58 98 12/14/16 17:56 97.4 F L 63 18 141/63 95 12/14/16 17:29 67 16 99 12/14/16 16:56 97.3 F L 63 18 171/69 97 12/14/16 15:58 66 17 143/62 100 12/14/16 14:49 97.3 F L 67 15 139/61 100 12/14/16 14:15 68 14 137/61 100 12/14/16 13:45 72 16 175/75 98 Intake and Output 12/14/16 12/15/16 12/15/16 22:59 06:59 14:59 Intake Total 10 10 360 Output Total 950 Balance 10 -940 360 Intake: IV 10 10 0.9% NS FLUSH 10 mL 10 10 Oral 360 Output: Urine 950 Other: Voiding Method Toilet # Voids 2 Weight 85.9 kg 85.9 kg Patient Weight 12/16/16 06:59 Weight 85.9 kg Results 12/14/16 13:45 12/14/16 13:45 Cardiac Enzymes 12/14/16 12/14/16 Range/Units 13:45 13:45 AST 33 (14-36) U/L CK-MB (CK-2) 1.4 (0.0-2.4) ng/mL Troponin I 0.426 H* (0.000-0.034) ng/mL Coagulation 12/14/16 Range/Units 13:45 PT 17.2 H (9.0-12.0) sec APTT 34.4 H (22.0-30.0) sec Lipids 12/15/16 Range/Units 06:23 Triglycerides 128 (<150) mg/dL Cholesterol 171 (<200) mg/dL HDL Cholesterol 28 L (40-60) mg/dL CBC 12/14/16 Range/Units 13:45 WBC 7.9 (3.8-10.6) k/uL RBC 3.52 L (3.80-5.40) m/uL Hgb 10.8 L (11.4-16.0) gm/dL Hct 34.6 (34.0-46.0) % Plt Count 282 (150-450) k/uL Comprehensive Metabolic Panel 12/14/16 Range/Units 13:45 Sodium 139 (137-145) mmol/L Potassium 3.9 (3.5-5.1) mmol/L Chloride 107 (98-107) mmol/L Carbon Dioxide 25 (22-30) mmol/L BUN 19 H (7-17) mg/dL Creatinine 1.02 (0.52-1.04) mg/dL Glucose 100 H (74-99) mg/dL Calcium 8.4 (8.4-10.2) mg/dL AST 33 (14-36) U/L ALT 30 (9-52) U/L Alkaline Phosphatase 91 (38-126) U/L Total Protein 5.9 L (6.3-8.2) g/dL Albumin 2.8 L (3.5-5.0) g/dL Current Medications Generic Name Dose Route Start Last Admin Trade Name Freq PRN Reason Stop Dose Admin Amiodarone HCl 200 mg 12/15/16 09:00 12/15/16 08:34 Cordarone PO 200 mg DAILY NIRMALA Administration Amlodipine Besylate 5 mg 12/15/16 09:00 12/15/16 11:21 Norvasc PO Not Given DAILY [facility] Aspirin 81 mg 12/16/16 09:00 Aspirin PO DAILY [facility] Atorvastatin Calcium 40 mg 12/15/16 09:00 12/15/16 08:34 Lipitor PO 40 mg DAILY NIRMALA Administration Benzonatate 200 mg 12/14/16 21:43 Tessalon Perles PO TID PRN Cough Carvedilol 12.5 mg 12/15/16 07:30 12/15/16 06:32 Coreg PO 12.5 mg BID-W/MEALS NIRMALA Administration Furosemide 40 mg 12/15/16 09:00 12/15/16 08:34 Lasix PO 40 mg DAILY [facility] Administration Nitroglycerin 1 inch 12/14/16 18:00 12/15/16 11:21 Nitro-Bid Oint TOPICAL Not Given Q6HR [facility] Nitroglycerin 0.4 mg 12/14/16 15:47 Nitrostat SUBLINGUAL Q5M PRN Chest Pain Rivaroxaban 10 mg 12/16/16 09:00 Xarelto PO DAILY NIRMALA Sodium Chloride 10 ml 12/14/16 21:00 12/15/16 08:45 Saline Flush IV Not Given BID NIRMALA Spironolactone 25 mg 12/15/16 09:00 12/15/16 08:34 Aldactone PO 25 mg DAILY NIRMALA Administration Intake and Output 12/14/16 12/15/16 12/15/16 22:59 06:59 14:59 Intake Total 10 10 360 Output Total 950 Balance 10 -940 360 Intake: IV 10 10 0.9% NS FLUSH 10 mL 10 10 Oral 360 Output: Urine 950 Other: Voiding Method Toilet # Voids 2 Weight 85.9 kg 85.9 kg Patient Weight 12/16/16 06:59 Weight 85.9 kg 12/14/16 13:45 12/14/16 13:45
--- NOTE | 2016-12-15 19:20 | HP ---
DATE OF ADMISSION: 12/14/2016 PRESENTING COMPLAINT: Tired. HISTORY OF PRESENTING COMPLAINT: This is a 76-year-old patient of Dr. Birmingham. Here with her . The patient herself is not much of a historian and history obtained from the . The patient's chronic stable medical conditions include asthma, coronary artery disease with stent, hypertension, hyperlipidemia, osteoarthritis, atrial fibrillation. Per the , patient has a walker at home and has got lower extremity swelling breakdown oozing. The patient is able to tolerate a diet. Patient herself not able to give much of a history, is pleasantly able to answer some simple questions. There is no obvious chest pain. ER do some troponins and hence cardiology is consulted. The patient herself does not state any chest pain, appears rather comfortable, lying in bed. Review of systems really cannot be obtained because of patient's dementia. Past medical history of asthma, coronary artery disease with stent, hard of hearing, hypertension, hyperlipidemia, osteoarthritis, atrial fibrillation. PAST SURGICAL HISTORY: Cholecystectomy, cardiac catheterization, and tubal ligation, tooth extractions, cardioversion for A. fib, tubal . SOCIAL HISTORY: Never smoked. Lives with her . Has a pet dog. FAMILY HISTORY: Noncontributory to the presentation. HOME MEDICATIONS: 1. Norvasc 5 mg a day. 2. Aldactone 25 mg a day. 3. Xarelto 20 mg daily. 4. Lasix 40 mg a day. 5. Coreg 12.5 p.o. b.i.d. 6. Benzonatate 100 mg p.o. t.i.d. p.r.n. 7. Lipitor 40 mg a day. 8. Aspirin 81 mg a day. 9. Amiodarone 200 mg a day. ALLERGIES: ADHESIVE, EPINEPHRINE AND CODEINE. PHYSICAL EXAMINATION: Vital signs on presentation: Temperature 97.2, pulse 60, respiratory rate 18, blood pressure 120/58, pulse ox 95% on room air. GENERAL APPEARANCE: Well built, BMI 37. Lying in bed. HEENT: External appearance of nose and ears normal. Oral cavity normal. ( ) sparse and had loss of hair. NECK: JVD not raised. Mass not palpable. RESPIRATORY: Effort normal. LUNGS: Fair air entry. CARDIOVASCULAR: First and second sounds normal. Patient has a dressing over lower extremity with from soaking of that dressing. ABDOMEN: Soft, nontender. Liver and spleen not palpable. LYMPHATIC: No lymph nodes palpable in neck or axillae. PSYCHIATRY: Patient is answering some simple questions. NEUROLOGICAL: Pupils equal. Cranial nerves grossly intact. INVESTIGATIONS: White count 7.9, hemoglobin 10.8, potassium 3.9. BUN 19, creatinine 1.02, troponin 0.426. Albumin 2.8. LDL 117. EKG normal sinus rhythm, poor tracing. Chest x-ray with some cardiomegaly. Patient ProBNP 3190. ASSESSMENT: 1. Bilateral lower extremity venous insufficiency with superficial stasis ulcers and possibly side effect of amlodipine. 2. Coronary artery disease with prior history of stent. 3. Possible chronic congestive heart failure from underlying ischemic cardiomyopathy will await the patient 2-D echo. 4. Hyperlipidemia. 5. Essential hypertension. 6. Primary osteoarthritis in multiple joints. 7. Alzheimer's dementia, late-onset type. PLAN: We will discontinue the patient Norvasc given the blood pressure running on the lower side and also lower extremity edema. Patient is on Xarelto for atrial fibrillation, history of. The patient already on Aldactone. Will do a 2-D echocardiogram. ID and cardiology were consulted. 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 Copy to Dr. Birmingham.
--- NOTE | 2016-12-15 22:00 | P.CON ---
Consult Note - . Consult date: 12/15/16 Assessment/Plan:: This is a 76-year-old female who recently started seen Dr. Hernandez in the wound healing Center for venous stasis ulcers to bilateral lower extremities. Her visit there was on December 11 and she underwent an I&D and current wound care is Aquasol with foam compression dressing. Home care had been arranged. Patient was brought into [facility] emergency center due to concerns for GI bleed and low blood pressure and leg swelling. Chest x-ray showed cardiomegaly. It is noted she has history of paroxysmal atrial fibrillation and is on amiodarone and Xarelto. Her hemoglobin was 10.8. White count 7.9. Troponin was 0.4-6. Occult blood was negative. BUN 19 and creatinine 1.02 with GFR of 53. Patient has been admitted to the selective care unit. She has been seen by Dr. Bryant. Patient is currently in a sinus rhythm. Patient denies any problems with her legs or increased pain to her legs. Please see the consult note as dictated for nurse practitioner Mrs. Racquel Nelson.. The patient has some dementia and is a poor historian. However she does relate that the legs are uncomfortable. She is unable to relate how long it actually been ongoing for. She however has been following the wound healing Center and was tolerating the local compression well. At this time will be prudent to ensure that there is no clots. Before any further compression therapy is performed. We utilize Silvadene and gentle wraps for now. Legs do not appear to be significantly infected at this time.as noted per the nursing photography,there are large areas of some tissue l It appears to be full- thickness. There is no ascending erythema. The sites are not very tender. There is no lymphadenopathy in either groin. The upper extremities of the restlessness and without stability lesions. At this time duplex scan will be requested. Silvadene wraps will be applied. Elevate and rest. Ensure her protein is adequate. And will monitor. I agree with evaluation, assessment and plan is dictated by nurse practitioner Mrs. Racquel Sow.
[2016-12-16] MEDS: NITROGLYCERIN OINT 1 INCH/GM PACKET TOPICAL SCH ×2 (01:52→13:11)
[2016-12-16] MEDS: CARVEDILOL 12.5 MG TAB PO SCH ×2 (06:09→16:34)
[2016-12-16] MEDS: AMIODARONE 200 MG TAB PO SCH (08:19)
[2016-12-16] MEDS: SPIRONOLACTONE 25 MG TAB PO SCH (08:19)
[2016-12-16] MEDS: ATORVASTATIN 40 MG TAB PO SCH (08:19)
[2016-12-16] MEDS: ASPIRIN 81 MG CHEW PO SCH (08:19)
[2016-12-16] MEDS: RIVAROXABAN 10 MG TAB PO SCH (08:19)
[2016-12-16] MEDS: FUROSEMIDE 40 MG TAB PO SCH (08:20)
[2016-12-16] MEDS: amLODIPine 5 MG TAB PO SCH (08:20)
[2016-12-16] MEDS ORDERED: SILVER sulfADIAZINE Cream 400 GM 1 APPLIC APPLIC TOPICAL SCH (09:00)
--- NOTE | 2016-12-16 10:24 | US ---
EXAMINATION TYPE: US venous doppler duplex LE DATE OF EXAM: 12/16/2016 9:15 AM COMPARISON: 12/19/2013 CLINICAL HISTORY: dvt, reflux. Wound bilateral lower legs LOWER EXTREMITY VENOUS INSUFFICIENCY SIDE PERFORMED: bilateral 1) Color flow is present and patency is documented in the following vessels. No DVT or SVT is noted . ? EIV ? Common Femoral Vein ? Deep Femoral Vein ? Femoral Vein ? Popliteal Vein ? Proximal Calf Veins ? Greater Saph Vein ? Upper Small Saph Vein 2) There is venous reflux noted at the following venous levels: right EIV, right CFV, right deep fe moral vein, left EIV, left greater saph. vein, left CFV, left femoral vein upper and mid Technical limitations due to patient's body habitus IMPRESSION: 1. Technically Limited exam demonstrates venous reflux as discussed above.
[2016-12-16 11:04] LABS: CH 31.2; CHCM 31.2; HCT 31.9 % (34.0-46.0); HDW 2.39; Hypochromasia Slight; MCH 31.5 pg (25.0-35.0); MCHC 31.4 g/dL (31.0-37.0); MCV 100.5 fL (80.0-100.0); Macrocytosis Slight; Mean Platelet Volume 7.2; RBC 3.17 m/uL (3.80-5.40); RDW 14.4 % (11.5-15.5); WBC 8.8 k/uL (3.8-10.6)
[2016-12-16 11:19] LABS: Anion Gap 8 mmol/L; Blood Urea Nitrogen 22 mg/dL (7-17); Calcium 8.1 mg/dL (8.4-10.2); Carbon Dioxide 27 mmol/L (22-30); Chloride 104 mmol/L (98-107); Glucose 117 mg/dL (74-99); Non-African American GFR(MDRD) 53 (>60 ml/min/1.73 sqM); Potassium 3.8 mmol/L (3.5-5.1); Sodium 139 mmol/L (137-145)
--- NOTE | 2016-12-16 16:30 | PN ---
DATE OF SERVICE: 12/16/2016 PRESENTING COMPLAINT: Tired. INTERVAL HISTORY: This is a 76-year-old patient who presents with bilateral lower extremity venous insufficiency. Today patient is awake and alert, lying in bed; just finished getting washed up. States she feels better. Ate her breakfast. She is able to move about with some assistance. Review of systems for constitutional, cardiovascular, GI, pulmonary, with relevant findings as above. CURRENT MEDICATIONS: 1. Amiodarone 200 mg p.o. daily. 2. Norvasc 5 mg p.o. daily. 3. Aspirin 81 mg p.o. daily. 4. Lipitor 40 mg p.o. daily. 5. Coreg 12.5 mg p.o. b.i.d. 6. Lasix 40 mg p.o. daily. 7. Xarelto 10 mg p.o. daily. PHYSICAL EXAMINATION: VITAL SIGNS: Temperature 98.7, pulse 61, respiratory rate 18, blood pressure 109/58, oxygen saturation 96% on room air. GENERAL APPEARANCE: Patient calm-appearing, lying in bed. Looks comfortable. EYES: Pupils equal. Conjunctivae normal. NECK: JVD not raised. Mass not palpable. Lung sounds diminished bilaterally. RESPIRATORY: Effort normal, unlabored. CARDIOVASCULAR: First and second sounds noted. Moderate edema. ABDOMEN: Soft, nontender. Liver and spleen not palpable. PSYCHIATRY: Alert and oriented x1 to 2. Mood and affect normal.
[2016-12-16] MEDS: ACETAMINOPHEN TAB 325 MG TAB PO PRN (16:33)
--- NOTE | 2016-12-16 16:50 | PN ---
ADDENDUM INVESTIGATIONS: Hemoglobin 10.0. Glucose 117. Venous Doppler study: Exam is technically limited. Demonstrates venous reflux. Cardiology and Infectious Disease remain on the case. ASSESSMENT: 1. Bilateral lower extremity venous insufficiency with superficial stasis ulcers, possibly a side effect of amlodipine. 2. Coronary artery disease with prior history of stent, stable. 3. Possible chronic congestive heart failure from underlying ischemic cardiomyopathy. Will await the results of the 2-D echo. 4. Hyperlipidemia. 5. Essential hypertension. 6. Primary osteoarthritis in multiple joints. 7. Alzheimer's dementia, late-onset type. PLAN: Norvasc is discontinued. Patient is on Xarelto for atrial fibrillation. Await 2-D echo and consultation from Infectious Disease. ID recommends continuation of local wound care, ( ) wraps for now. No antibiotics ordered at this time. Cardiology recommends repeat echocardiogram and Doppler study. Xarelto was decreased, as was aspirin. Will continue to follow. Patient was seen and examined by nurse practitioner Velma Islas, and all elements of the case were discussed with Dr. Quiroz.
--- NOTE | 2016-12-16 20:51 | P.PN ---
Subjective Principal diagnosis: le edema This is a 76-year-old female who recently started seen Dr. Hernandez in the wound healing Center for venous stasis ulcers to bilateral lower extremities. Her visit there was on December 11 and she underwent an I&D and current wound care is Aquasol with foam compression dressing. Home care had been arranged. Patient was brought into [facility] emergency center due to concerns for GI bleed and low blood pressure and leg swelling. Chest x-ray showed cardiomegaly. It is noted she has history of paroxysmal atrial fibrillation and is on amiodarone and Xarelto. Her hemoglobin was 10.8. White count 7.9. Troponin was 0.4-6. Occult blood was negative. BUN 19 and creatinine 1.02 with GFR of 53. Patient has been admitted to the selective care unit. She has been seen by Dr. Bryant. Patient is currently in a sinus rhythm. Patient denies any problems with her legs or increased pain to her legs.Feels better today. Little less short of breath, denies chest pain. Energy level is poor. As noted she has severe dementia Objective - Vital Signs Vital signs: Vital Signs Temp 98.3 F 12/16/16 16:00 Pulse 68 12/16/16 16:00 Resp 18 12/16/16 16:00 BP 116/43 12/16/16 16:00 Pulse Ox 93 L 12/16/16 16:00 Intake & Output 12/16/16 12/16/16 12/17/16 06:59 18:59 06:59 Intake Total 30 1205 Output Total 175 Balance 30 1030 Weight 85 kg Intake: IV 30 10 0.9% NS FLUSH 10 mL 30 10 Oral 1195 Output: Urine 175 Other: Voiding Method Toilet Toilet # Voids 1 - Exam Gen: This is a 76-year-old morbidly obese female. She is lying in bed and appears to be in no acute distress. No respiratory distress is noted. Patient was sleeping and awakens easily to verbal stimuli. HEENT: Head is atraumatic, normocephalic. Pupils equal, round. Sclerae is anicteric. Oral mucous membranes are slightly dry. NECK: Supple. No JVD. No lymphadenopathy. No thyromegaly. LUNGS: Clear to auscultation. No wheezes or rhonchi. No intercostal retractions. HEART: Regular rate and rhythm. Harsh systolic murmur left sternal border. ABDOMEN: Soft. Bowel sounds are present. No masses. No tenderness. EXTREMITIES: 3+ bilateral pedal edema. Bilateral lower extremity edema with evidence of the full-thickness ulcerations that are scattered on the bilateral lower, refer to the nursing photography for the location. Drainage is improved with the current local care. They're still somewhat tender to touch. No new ulcers are seen. Edema is slightly improved. NEUROLOGICAL: Patient is awake, alert and oriented x1 - Labs CBC & Chem 7: 12/16/16 10:29 12/16/16 10:29 Labs: Abnormal Lab Results - Last 24 Hours (Table) 12/16/16 12/16/16 Range/Units 10: 10: RBC 3.17 L (3.80-5.40) m/uL Hgb 10.0 L (11.4-16.0) gm/dL Hct 31.9 L (34.0-46.0) % MCV 100.5 H (80.0-100.0) fL BUN 22 H (7-17) mg/dL Glucose 117 H (74-99) mg/dL Calcium 8.1 L (8.4-10.2) mg/dL Venous ultrasound without evidence of clots evidence of extensive reflux Assessment and Plan (1) Venous stasis ulcer Narrative/Plan: The patient has some dementia and is a poor historian. However she does relate that the legs are uncomfortable. She is unable to relate how long it actually been ongoing for. She however has been following the wound healing Center and was tolerating the local compression well. At this time will be prudent to ensure that there is no clots. Before any further compression therapy is performed. We utilize Silvadene and gentle wraps for now. Legs do not appear to be significantly infected at this time.as noted per the nursing photography, there are large areas of some tissue l It appears to be full-thickness. There is no ascending erythema. The sites are not very tender. There is no lymphadenopathy in either groin. The upper extremities of the restlessness and without stability lesions. Venous duplex was performed. No evidence of any blood clot. Evidence of extensive reflux is noted. Continue with Silvadene and wraps. Continue to follow wound center after discharge. May be a candidate for multilayer wraps to help with the venous stasis ulcerations. Evidence of infection at this time. No antibiotics for now. Status: Chronic
--- NOTE | 2016-12-16 22:06 | PN ---
DATE OF SERVICE: 12/16/2016 ATTENDING NOTE: This patient was examined by me earlier today. I reviewed the note of my nurse practitioner, Ms. Islas, agreed and discussed with her. Patient is comfortable, tolerating a diet. Silvadene cream to the lower extremity. No chest pain. Current medications are reviewed. On examination, blood pressure 109/58, pulse ox 96% on room air. LUNGS: Decreased breath sounds. CARDIOVASCULAR: First and second sounds normal. LOWER EXTREMITY: Venous insufficiency present. ASSESSMENT: 1. Bilateral lower extremity venous insufficiency with superficial stasis ulcers and also side effect of amlodipine. 2. Coronary artery disease with prior history of stent, stable. 3. Possible acute congestive heart failure, underlying ischemic cardiomyopathy. Awaiting results of 2-D echo. 4. Troponin leak. PLAN: Patient's amlodipine has been discontinued because of his side effect of lower extremity swelling and blood pressure running on the low side. Imdur 30 mg daily will be added. Xarelto for atrial fibrillation. Will follow.
[2016-12-17 06:36] LABS: CH 31.3; CHCM 31.4; HCT 31.3 % (34.0-46.0); HGB 10.2 gm/dL (11.4-16.0); Hypochromasia Slight; MCH 32.7 pg (25.0-35.0); MCHC 32.7 g/dL (31.0-37.0); MCV 100.1 fL (80.0-100.0); Macrocytosis Slight; Mean Platelet Volume 7.1; RBC 3.13 m/uL (3.80-5.40); RDW 14.4 % (11.5-15.5); WBC 9.1 k/uL (3.8-10.6)
[2016-12-17] MEDS: CARVEDILOL 12.5 MG TAB PO SCH ×2 (06:46→16:46)
[2016-12-17 06:48] LABS: Anion Gap 6 mmol/L; Blood Urea Nitrogen 23 mg/dL (7-17); Carbon Dioxide 27 mmol/L (22-30); Chloride 107 mmol/L (98-107); Glucose 94 mg/dL (74-99); Non-African American GFR(MDRD) 59 (>60 ml/min/1.73 sqM); Sodium 140 mmol/L (137-145)
[2016-12-17] MEDS: AMIODARONE 200 MG TAB PO SCH (08:44)
[2016-12-17] MEDS: FUROSEMIDE 40 MG TAB PO SCH (08:44)
[2016-12-17] MEDS: ATORVASTATIN 40 MG TAB PO SCH (08:44)
[2016-12-17] MEDS: SPIRONOLACTONE 25 MG TAB PO SCH (08:44)
[2016-12-17] MEDS: RIVAROXABAN 10 MG TAB PO SCH (08:44)
[2016-12-17] MEDS: ISOSORBIDE MONONITRATE ER 15 MG TAB PO SCH (08:44)
[2016-12-17] MEDS: ASPIRIN 81 MG CHEW PO SCH (08:44)
[2016-12-17] MEDS: ACETAMINOPHEN TAB 325 MG TAB PO PRN (19:13)
--- NOTE | 2016-12-17 20:32 | P.PN ---
Subjective Principal diagnosis: le edema This is a 76-year-old female who recently started seen Dr. Hernandez in the wound healing Center for venous stasis ulcers to bilateral lower extremities. Her visit there was on December 11 and she underwent an I&D and current wound care is Aquasol with foam compression dressing. Home care had been arranged. Patient was brought into [facility] emergency center due to concerns for GI bleed and low blood pressure and leg swelling. Chest x-ray showed cardiomegaly. It is noted she has history of paroxysmal atrial fibrillation and is on amiodarone and Xarelto. Her hemoglobin was 10.8. White count 7.9. Troponin was 0.4-6. Occult blood was negative. BUN 19 and creatinine 1.02 with GFR of 53. Patient has been admitted to the selective care unit. She has been seen by Dr. Bryant. Patient is currently in a sinus rhythm. Patient denies any problems with her legs or increased pain to her legs.Feels better today. Little less short of breath, denies chest pain. Energy level is poor. As noted she has severe dementia eating well. Objective - Vital Signs Vital signs: Vital Signs Temp 97.2 F L 12/17/16 08:00 Pulse 58 L 12/17/16 15:58 Resp 16 12/17/16 15:58 BP 113/57 12/17/16 15:58 Pulse Ox 98 12/17/16 15:58 Intake & Output 12/17/16 12/17/16 12/18/16 06:59 18:59 06:59 Intake Total 20 790 Output Total 200 Balance -180 790 Weight 86 kg Intake: IV 20 0.9% NS FLUSH 10 mL 20 Oral 790 Output: Urine 200 Other: Voiding Method Toilet # Voids 1 - Exam Gen: This is a 76-year-old morbidly obese female. She is lying in bed and appears to be in no acute distress. No respiratory distress is noted. Patient was sleeping and awakens easily to verbal stimuli. HEENT: Head is atraumatic, normocephalic. Pupils equal, round. Sclerae is anicteric. Oral mucous membranes are slightly dry. NECK: Supple. No JVD. No lymphadenopathy. No thyromegaly. LUNGS: Clear to auscultation. No wheezes or rhonchi. No intercostal retractions. HEART: Regular rate and rhythm. Harsh systolic murmur left sternal border. ABDOMEN: Soft. Bowel sounds are present. No masses. No tenderness. EXTREMITIES: 3+ bilateral pedal edema. Bilateral lower extremity edema with evidence of the full-thickness ulcerations that are scattered on the bilateral lower, refer to the nursing photography for the location. Drainage is improved with the current local care. They're still somewhat tender to touch. No new ulcers are seen. Edema is slightly improved. NEUROLOGICAL: Patient is awake, alert and oriented x1 - Labs CBC & Chem 7: 12/17/16 06:13 12/17/16 06:13 Labs: Abnormal Lab Results - Last 24 Hours (Table) 12/17/16 12/17/16 Range/Units 06: 06:13 RBC 3.13 L (3.80-5.40) m/uL Hgb 10.2 L (11.4-16.0) gm/dL Hct 31.3 L (34.0-46.0) % MCV 100.1 H (80.0-100.0) fL BUN 23 H (7-17) mg/dL Calcium 8.0 L (8.4-10.2) mg/dL Laboratory Results WBC 9.1 k/uL (3.8-10.6) 12/17/16 06:13 RBC 3.13 m/uL (3.80-5.40) L 12/17/16 06:13 Hgb 10.2 gm/dL (11.4-16.0) L 12/17/16 06:13 Hct 31.3 % (34.0-46.0) L 12/17/16 06:13 MCV 100.1 fL (80.0-100.0) H 12/17/16 06:13 MCH 32.7 pg (25.0-35.0) 12/17/16 06:13 MCHC 32.7 g/dL (31.0-37.0) 12/17/16 06:13 RDW 14.4 % (11.5-15.5) 12/17/16 06:13 Plt Count 268 k/uL (150-450) 12/17/16 06:13 Neutrophils % 58 % 12/14/16 13:45 Lymphocytes % 19 % 12/14/16 13:45 Monocytes % 9 % 12/14/16 13:45 Eosinophils % 12 % 12/14/16 13:45 Basophils % 1 % 12/14/16 13:45 Neutrophils # 4.6 k/uL (1.3-7.7) 12/14/16 13:45 Lymphocytes # 1.5 k/uL (1.0-4.8) 12/14/16 13:45 Monocytes # 0.7 k/uL (0-1.0) 12/14/16 13:45 Eosinophils # 0.9 k/uL (0-0.7) H 12/14/16 13:45 Basophils # 0.0 k/uL (0-0.2) 12/14/16 13:45 Hypochromasia Slight 12/17/16 06:13 Macrocytosis Slight 12/17/16 06:13 PT 17.2 sec (9.0-12.0) H 12/14/16 13:45 INR 1.8 (<1.1) 12/14/16 13:45 APTT 34.4 sec (22.0-30.0) H 12/14/16 13:45 Sodium 140 mmol/L (137-145) 12/17/16 06:13 Potassium 4.0 mmol/L (3.5-5.1) 12/17/16 06:13 Chloride 107 mmol/L (98-107) 12/17/16 06:13 Carbon Dioxide 27 mmol/L (22-30) 12/17/16 06:13 Anion Gap 6 mmol/L 12/17/16 06:13 BUN 23 mg/dL (7-17) H 12/17/16 06:13 Creatinine 0.92 mg/dL (0.52-1.04) 12/17/16 06:13 Est GFR (MDRD) Af Amer >60 (>60 ml/min/1.73 sqM) 12/17/16 06:13 Est GFR (MDRD) Non-Af 59 (>60 ml/min/1.73 sqM) 12/17/16 06:13 Glucose 94 mg/dL (74-99) 12/17/16 06:13 Calcium 8.0 mg/dL (8.4-10.2) L 12/17/16 06:13 Total Bilirubin 0.9 mg/dL (0.2-1.3) 12/14/16 13:45 AST 33 U/L (14-36) 12/14/16 13:45 ALT 30 U/L (9-52) 12/14/16 13:45 Alkaline Phosphatase 91 U/L (38-126) 12/14/16 13:45 Total Creatine Kinase 103 U/L (30-135) 12/14/16 13:45 CK-MB (CK-2) 1.4 ng/mL (0.0-2.4) 12/14/16 13:45 CK-MB (CK-2) Rel Index 1.4 12/14/16 13:45 Troponin I 0.426 ng/mL (0.000-0.034) H* 12/14/16 13:45 NT-Pro-B Natriuret Pep 3190 pg/mL 12/14/16 13:45 Total Protein 5.9 g/dL (6.3-8.2) L 12/14/16 13:45 Albumin 2.8 g/dL (3.5-5.0) L 12/14/16 13:45 Triglycerides 128 mg/dL (<150) 12/15/16 06:23 Cholesterol 171 mg/dL (<200) 12/15/16 06:23 LDL Cholesterol, Calc 117 mg/dL (0-99) H 12/15/16 06:23 HDL Cholesterol 28 mg/dL (40-60) L 12/15/16 06:23 Stool Occult Blood Negative (Negative) 12/14/16 13:45 Assessment and Plan (1) Venous stasis ulcer Narrative/Plan: The patient has some dementia and is a poor historian. However she does relate that the legs are uncomfortable. She is unable to relate how long it actually been ongoing for. She however has been following the wound healing Center and was tolerating the local compression well. At this time will be prudent to ensure that there is no clots. Before any further compression therapy is performed. We utilize Silvadene and gentle wraps for now. Legs do not appear to be significantly infected at this time.as noted per the nursing photography, there are large areas of some tissue l It appears to be full-thickness. There is no ascending erythema. The sites are not very tender. There is no lymphadenopathy in either groin. The upper extremities of the restlessness and without stability lesions. Venous duplex was performed. No evidence of any blood clot. Evidence of extensive reflux is noted. Continue with Silvadene and wraps. Continue to follow wound center after discharge. May be a candidate for multilayer wraps to help with the venous stasis ulcerations. No evidence of infection at this time. No antibiotics for now. Status: Chronic
--- NOTE | 2016-12-17 20:58 | PN ---
DATE OF SERVICE: 12/17/2016 PRESENTING COMPLAINT: Tired. INTERVAL HISTORY: This is a 76-year-old patient who presents with bilateral lower extremity venous insufficiency. Today the patient is awake and alert; lying in bed, just finished breakfast, states she feels better and would like to go home. Patient is able to move about with some assistance. Review of systems for constitutional, cardiovascular, GI, pulmonary with relevant findings as above. CURRENT MEDICATIONS: 1. Amiodarone. 2. Norvasc. 3. Aspirin. 4. Lipitor. 5. Coreg. 6. Lasix. 7. Xarelto. PHYSICAL EXAMINATION: VITAL SIGNS: Temperature 97.2, pulse 58, respirations 16, blood pressure 108/48, oxygen saturation 98% on room air. GENERAL APPEARANCE: Patient is lying in bed, calm, relaxed. Family member at the bedside. EYES: Pupils equal. Conjunctivae normal. NECK: JVD not raised. Mass not palpable. Lung sounds diminished bilaterally. Some crackles noted at the end of expiration. RESPIRATORY: Effort normal. CARDIOVASCULAR: First and second sounds normal. Trace edema noted. ABDOMEN: Soft, nontender. Liver and spleen not palpable. PSYCHIATRY: Alert and oriented x3. Mood and affect are normal. SKIN: Bilateral lower extremities with multiple wounds upon them. Currently, legs are covered with Bk wraps and have treatment cream of Silvadene on them. INVESTIGATIONS: White blood cell count 9.1, hemoglobin 10.2, platelet count 268. Sodium 140, potassium 4.0, BUN 23, creatinine 0.92. ASSESSMENT: 1. Bilateral lower extremity venous insufficiency with superficial stasis ulcers, possibly a side effect of amlodipine. 2. Coronary artery disease with prior history of stent, stable. 3. Possible congestive heart failure from underlying ischemic cardiomyopathy. Awaiting the results of the 2-dimensional echocardiogram. 4. Hyperlipidemia. 5. Essential hypertension, controlled. 6. Primary osteoarthritis of multiple joints. 7. Alzheimer dementia, late onset type. PLAN: Awaiting 2-D echo. ID recommends continuation of local wound care. Bk wraps to continue. No antibiotics at this time. Discharge planning to an ECF tomorrow. Patient was seen and examined by Nurse Practitioner Velma Islas, and all elements of the case were discussed with attending, Dr. Quiroz. I performed a history and physical examination of this patient and discussed the same with the dictator. I agree with the dictator's note. Any additional findings/opinions, etc. will be noted.
[2016-12-17] MEDS ORDERED: SILVER sulfADIAZINE Cream 400 GM 1 APPLIC APPLIC TOPICAL SCH (21:00)
[2016-12-18 06:32] LABS: CH 31.3; CHCM 32.3; HCT 29.5 % (34.0-46.0); HDW 2.55; HGB 9.8 gm/dL (11.4-16.0); MCH 32.2 pg (25.0-35.0); MCHC 33.1 g/dL (31.0-37.0); MCV 97.3 fL (80.0-100.0); Mean Platelet Volume 7.3; RBC 3.04 m/uL (3.80-5.40); RDW 14.1 % (11.5-15.5); WBC 7.9 k/uL (3.8-10.6)
[2016-12-18] MEDS: CARVEDILOL 12.5 MG TAB PO SCH (06:39)
[2016-12-18 06:44] LABS: Anion Gap 6 mmol/L; Blood Urea Nitrogen 23 mg/dL (7-17); Calcium 8.2 mg/dL (8.4-10.2); Carbon Dioxide 29 mmol/L (22-30); Chloride 106 mmol/L (98-107); Glucose 84 mg/dL (74-99); Non-African American GFR(MDRD) 54 (>60 ml/min/1.73 sqM); Potassium 4.5 mmol/L (3.5-5.1); Sodium 141 mmol/L (137-145)
[2016-12-18] MEDS: AMIODARONE 200 MG TAB PO SCH (08:31)
[2016-12-18] MEDS: RIVAROXABAN 10 MG TAB PO SCH (08:32)
[2016-12-18] MEDS: ISOSORBIDE MONONITRATE ER 15 MG TAB PO SCH (08:32)
[2016-12-18] MEDS: SPIRONOLACTONE 25 MG TAB PO SCH (08:32)
[2016-12-18] MEDS: ASPIRIN 81 MG CHEW PO SCH (08:32)
[2016-12-18] MEDS: FUROSEMIDE 40 MG TAB PO SCH (08:32)
[2016-12-18] MEDS: ATORVASTATIN 40 MG TAB PO SCH (08:32)
[2016-12-18 11:03] VITALS: BMI 36.6
[2016-12-18 11:45] VITALS: BP 114/55; PULSE 51; RESP 16; TEMP 97.4
--- NOTE | 2016-12-18 12:52 | DS ---
DATE OF ADMISSION: 12/14/2016 DATE OF DISCHARGE: 12/18/2016 FINAL DIAGNOSES: 1. Bilateral lower extremity venous insufficiency leading to superficial ulcers, probably infected, in addition to a side effect of amlodipine present on admission. 2. Coronary artery disease, history of stent. 3. Hyperlipidemia. 4. Essential hypertension. 5. Primary osteoarthritis in multiple joints. 6. Alzheimer's dementia, late onset type. 7. Paroxysmal atrial fibrillation, chronically on Xarelto. 8. Coronary artery disease with prior history of LAD. 9. Normocytic anemia, cause unknown, idiopathic. 10. Hypoalbuminemia, probably an acute phase reactant. HOSPITAL COURSE: This patient was brought in by her , not really much of a historian because of underlying dementia. Needs help to get around. Presented with lower extremity ulcerations, breakdown from venous insufficiency. Patient's amlodipine was discontinued because of side effect of lower extremity swelling. Blood pressure medications were adjusted. Patient was seen by Dr. Bryant from Cardiology and DVT was ruled out. Another ( ) to be added right now. Patient's lower extremity was treated with Silvadene cream and Kerlix Bk wraps. Patient will eventually land up getting long-term care. This was discussed with the is at bedside. On exam, lungs decreased breath sounds. CARDIOVASCULAR: Heart sounds irregular. ABDOMEN: Soft, nontender. Patient is able to answer simple questions. Lower extremity somewhat weeping with dressing in place. INVESTIGATIONS: Hemoglobin 9.8. White count 7.9. CONSULTATION: 1. Dr. Bryant from Cardiology. 2. Dr. Gupta, Infectious Disease. DISCHARGE MEDICATIONS: 1. Lipitor 40 mg p.o. daily. 2. Coreg 12.5 p.o. b.i.d. 3. Amlodipine discontinued. 4. Amiodarone 200 mg p.o. daily. 5. Aldactone 25 mg p.o. daily. 6. Aspirin 81 mg p.o. daily. 7. Lasix 40 mg p.o. daily. 8. Imdur ER 50 mg p.o. daily. 9. Nitrostat 0.4 sublingual q.5 p.r.n. 10. Xarelto 10 mg p.o. daily. 11. Silvadene cream topically q.h.s. 12. Wound care Silvadene cream twice a day with Kerlix and Bk wrap. Follow up with Dr. Bryant in 1 week. Follow up with Dr. Gupta in the [facility] in 1 week. Follow up with Dr. [place] [facility] Follow up with Dr. Clement [facility]. DISPOSITION: Russ. CLEMENTE planning more than 35 minutes.
--- NOTE | 2016-12-18 20:55 | PN ---
DATE OF SERVICE: 12/17/2016 ATTENDING NOTE: This patient was seen and examined by me on 12/17/16. I reviewed the note of my nurse practitioner Ms. Islas. I discussed it with her and agreed with the same. Patient is admitted with lower extremity venous insufficiency with superficial ulcers, getting wound dressing. Lying in bed. Tolerating her diet. at the bedside. Spoke to the social group worker; looking as discharge planning. On examination, lungs are clear. CARDIOVASCULAR: First and second sounds normal. Some weeping in the lower extremity. Blood pressure is doing better. ASSESSMENT: Bilateral lower extremity venous insufficiency with superficial stasis ulcers. Amlodipine has been discontinued. Local wound care is to continue. No further workup per Cardiology.
--- NOTE | 2016-12-22 14:16 | ECHOF ---
Referral Reason:CAD MEASUREMENTS -------- HEIGHT: 154.9 cm WEIGHT: 85.7 kg BP: 128/64 IVSd: 1.1 cm (0.6 - 1.1) LVIDd: 4.3 cm (3.9 - 5.3) LVPWd: 1.3 cm (0.6 - 1.1) IVSs: 2.0 cm LVIDs: 1.5 cm LVPWs: 1.7 cm LAESV Index (A-L): 60.66 ml/m Ao Diam: 2.5 cm (2.0 - 3.7) AV Cusp: 1.2 cm (1.5 - 2.6) LA Diam: 4.6 cm (2.7 - 3.8) MV EXCURSION: 13.536 mm (> 18.000) MV EF SLOPE: 28 mm/s (70 - 150) EPSS: 0.4 cm MV E Robin: 1.95 m/s MV DecT: 439 ms MV A Robin: 0.84 m/s MV E/A Ratio: 2.31 AV maxP.02 mmHg AV meanP.93 mmHg RAP: 5.00 mmHg RVSP: 82.36 mmHg FINDINGS -------- Sinus rhythm. This was a technically good study. There is mild concentric left ventricular hypertrophy. Overall left ventricular systolic function is normal with, an EF between 55 - 60 %. The right ventricle is normal in size and function. LA is severely dilated >40 ml/m2 The right atrium is normal in size. Aortic valve is trileaflet and is moderately thickened. There is moderate aortic stenosis present. Peak/mean gradient across the Aortic Valve is 36.02mmHg / 21.93mmHg. The mitral valve leaflets are moderate to severely thickened. Moderate mitral annular calcification present. Moderate mitral regurgitation is present. The peak and mean MV gradients are 19.78mmHg 4.25mmHg as measured by doppler. Moderate mitral stenosis. Moderate tricuspid regurgitation present. There is severe pulmonary hypertension. The right ventricular systolic pressure, as measured by Doppler, is 82.36mmHg. Pulmonic valve appears structurally normal. The aortic root, ascending aorta and aortic arch are normal. The pericardium is normal. Echo free space may represent effusion or a pericardial fat pad. CONCLUSIONS -------- 1. Sinus rhythm. 2. Peak/mean gradient across the Aortic Valve is 36.02mmHg / 21.93mmHg. 3. The mitral valve leaflets are moderate to severely thickened. 4. Moderate mitral annular calcification present. 5. Moderate mitral regurgitation is present. 6. The peak and mean MV gradients are 19.78mmHg 4.25mmHg as measured by doppler. 7. Moderate mitral stenosis. 8. Moderate tricuspid regurgitation present. 9. There is severe pulmonary hypertension. 10. The right ventricular systolic pressure, as measured by Doppler, is 82.36mmHg. 11. Pulmonic valve appears structurally normal. 12. This was a technically good study. 13. The aortic root, ascending aorta and aortic arch are normal. 14. The pericardium is normal. 15. Echo free space may represent effusion or a pericardial fat pad. 16. There is mild concentric left ventricular hypertrophy. 17. Overall left ventricular systolic function is normal with, an EF between 55 - 60 %. 18. The right ventricle is normal in size and function. 19. LA is severely dilated >40 ml/m2 20. The right atrium is normal in size. 21. Aortic valve is trileaflet and is moderately thickened. 22. There is moderate aortic stenosis present. MAINTENANCE MECHANIC 2ND SHIFT: Loren Henson RDCS
--- NOTE | 2016-12-23 10:52 | P.ARTDOP ---
Arterial Doppler LOWER EXTREMITY ARTERIAL DOPPLER: DATE OF SERVICE: 12/17/2016 Reason for study: Leg ulcers. Doppler waveforms: Multiphasic at the femoral level bilaterally and atypical below.. Pulse volume recording: Normal configuration to the ankle level bilaterally. Lungs at the metatarsal and digital level. Pressure gradients: Distal gradients bilaterally. Ankle-brachial indices: 0.89 on the right and greater than 1 on the left. Toe pressures: 31 on the right, 29 on the left Impression: Suspect at least moderate distal disease bilaterally. Low toe pressures could be distal disease, vasospasm, or poor cardiac output. Clinical correlation recommended.
--- NOTE | 2016-12-24 11:25 | CDI ---
In responding to this query, please exercise your independent professional judgment. The [facility] Coding Staff and Clinical Documentation Specialists appreciate your assistance in clarifying documentation, maintaining compliance with coding guidelines, accurately documenting patients condition and capturing severity of illness. The fact that a question is asked does not imply that any particular answer is desired or expected. Communication forms are a method of clarifying documentation and are not made part of the Legal Health Record. Thank you in advance for your clarification. Last Revision, September 2016 Sravanthi Frias [address] [place] [address] Documentation Clarification Form Date: 12/24/2016 11:14:00 AM From: Nicole Reagan [facility] & Fela Stauffer, [employer] & Fela = [phone] Admit Date: 12/14/2016 3:47:00 PM Patient Name: Iman Lopez Visit Number: [id number] Discharge Date: 12-18-16 Dr. Joseph Quiroz CHF---Please provide specificity along with POA status of CHF. H&P states "Possible chronic congestive heart failure from ischemic cardiomyopathy. Will await the patient's 2-D echo." Progress Note on 12-16-16 states "Possible acute CHF from underlying ischemic cardiomyopathy-await the pt's 2-D echo." History/Risk Factors: CAD, hypoalbuminemia, hypertension, AF, venous insufficiency, ischemic cardiomyopathy, asthma, infected venous stasis ulcers. Clinical Indicators: lower extremity swelling BNP: 3190 on 12-14-16 Echocardiogram Results: on 12-17-16 LA is severly dilated. Mild concentric left ventricular hypertrophy. Overall L vent. systolic function is normal w/ EF = 55- 60%. Severe pulmonary hypertension. Chest X Ray: 12-14-16 = Cardiomegaly Treatment: Lasix 40 mg IV on 12-14-16 and 40 mg orally 12-15/12-18-16. Patient on 40 mg at home. Consults: Cardiology In your professional opinion, can you please clarify the acuity and type of CHF if known? Systolic Heart Failure: Acute Chronic Acute on Chronic Diastolic Heart Failure: Acute Chronic Acute on Chronic Systolic & Diastolic Heart Failure: Acute Chronic Acute on Chronic Unable to determine Other, please specify Please document in your progress notes and discharge summary in order to capture severity of illness and risk of mortality. Include clinical findings that support your diagnosis. FYI: Press F11 to launch patient chart. Place X here if this finding has no clinical significance, is not applicable or if you are not able to provide any additional documentation. YAQUELIN
--- NOTE | 2016-12-24 11:47 | CDI ---
In responding to this query, please exercise your independent professional judgment. The [facility] Coding Staff and Clinical Documentation Specialists appreciate your assistance in clarifying documentation, maintaining compliance with coding guidelines, accurately documenting patients condition and capturing severity of illness. The fact that a question is asked does not imply that any particular answer is desired or expected. Communication forms are a method of clarifying documentation and are not made part of the Legal Health Record. Thank you in advance for your clarification. Last Revision, May 2015 Sravanthi Frias [address] [place] [place] [address] Documentation Clarification Form Date: 12/24/2016 11:35:00 AM From: Nicole Reagan [facility] & [phone] Admit Date: 12/14/2016 3:47:00 PM Patient Name: Iman Lopez Visit Number: [id number] Discharge Date: 12-18-16 Dr. Joseph Vasques bilateral stage II buttocks pressure injury was documented in the nursing notes. Photos also taken on 12-14-16 of bilateral buttock "wounds". History/Risk Factors: Hypoalbuminemia, Late onset Alzheimer's Demential, HTN, anemia, OA, CAD, CKD III, venous insufficiency, morbid obesity, BMI 36.6, AF, infected venous leg ulcers. Location: right and left buttock Wound description: Nursing states, scant-small drainage, indistinct margins, stage II. Treatment: Wound Care ordered 12-14-16. Daily orders by Dr. Gupta on 12-15-16 of "Cleanse wound w/normal saline and apply Silvadene, Kerlix, Bk. Consults: Dr. Gupta-also treating bilateral infected venous ulcers of legs. Dietary consult. Dietary also notes "stage II pressure injury". (no site given) Elements for accurate and compliant documentation of an ulcer: * The location/laterality of the ulcer * Etiology (decubitus/pressure, diabetic, PVD) * Stage I-IV, Unstageable, Suspected Deep Tissue Injury (To the deepest stage) * If the ulcer was present at admission (POA) or occurred after admission In your professional opinion, can you please clarify the diagnosis, location, laterality and whether present on admission (POA): Stage 1 Pressure/Decubitus Ulcer (intact skin, non-blanching redness of local area) Stage 2 Pressure/Decubitus Ulcer (Partial thickness, loss of dermis, pink wound bed) Stage 3 Pressure/Decubitus Ulcer (Full thickness tissue loss) Stage 4 Pressure/Decubitus Ulcer (Full thickness tissue loss with exposed bone, tendon, or muscle. May have slough or eschar present) Unstageable Unable to determine Other condition, please specify * Please indicate cause (if known). Please document in your progress notes and discharge summary in order to capture severity of illness and risk of mortality. Include clinical findings that support your diagnosis. FYI: Press F11 to launch patient chart. Place X here if this finding has no clinical significance, is not applicable or if you are not able to provide any additional documentation. YAQUELIN
--- NOTE | 2016-12-27 11:16 | DS ---
DATE OF ADMISSION: 12/14/2016 DATE OF DISCHARGE: 12/18/2016 ADDENDUM: 1. Possible acute on chronic cor pulmonale. 2. Possible acute on chronic congestive heart failure from diastolic dysfunction; ejection fraction 55%, from underlying coronary artery disease. 3. Moderate mitral regurgitation, nonrheumatic. 4. Moderate mitral stenosis, nonrheumatic. 5. Moderate tricuspid regurgitation, nonrheumatic. 6. Severe secondary pulmonary hypertension. 7. Bilateral stage 2 decubitus ulcers on the buttocks, present on admission.
== END 2016-12-18 14:43 | DRG 299 ==
LOC: EC 13:00 → 6SEL 15:47
PROVIDERS: ADMIT Hospitalist; ATTEND Hospitalist
PROC: B44HZZZ Ultrasonography of Bilateral Lower Extremity Arteries (ICD-10-PCS; principal; 2016-12-17)
DX: I87.2 Venous insufficiency (chronic) (peripheral) (principal); I50.33 Acute on chronic diastolic (congestive) heart failure; L89.312 Pressure ulcer of right buttock, stage 2; I95.9 Hypotension, unspecified; I27.2 Other secondary pulmonary hypertension; I27.81 Cor pulmonale (chronic); L89.322 Pressure ulcer of left buttock, stage 2; I13.0 Hypertensive heart and chronic kidney disease with heart failure and stage 1 through stage 4 chronic kidney disease, or unspecified chronic kidney disease; E88.09 Other disorders of plasma-protein metabolism, not elsewhere classified; L97.912 Non-pressure chronic ulcer of unspecified part of right lower leg with fat layer exposed; L97.922 Non-pressure chronic ulcer of unspecified part of left lower leg with fat layer exposed; E66.01 Morbid (severe) obesity due to excess calories; G30.1 Alzheimer's disease with late onset; F02.80 Dementia in other diseases classified elsewhere, unspecified severity, without behavioral disturbance, psychotic disturbance, mood disturbance, and anxiety; I48.0 Paroxysmal atrial fibrillation; T46.1X5A Adverse effect of calcium-channel blockers, initial encounter; I83.009 Varicose veins of unspecified lower extremity with ulcer of unspecified site; L08.89 Other specified local infections of the skin and subcutaneous tissue; N18.3 Chronic kidney disease, stage 3 (moderate); I25.10 Atherosclerotic heart disease of native coronary artery without angina pectoris; I25.5 Ischemic cardiomyopathy; E78.5 Hyperlipidemia, unspecified; K21.9 Gastro-esophageal reflux disease without esophagitis; J45.909 Unspecified asthma, uncomplicated; I36.1 Nonrheumatic tricuspid (valve) insufficiency; I34.2 Nonrheumatic mitral (valve) stenosis; I34.0 Nonrheumatic mitral (valve) insufficiency; H91.90 Unspecified hearing loss, unspecified ear; D64.9 Anemia, unspecified; R19.5 Other fecal abnormalities; M19.91 Primary osteoarthritis, unspecified site; R74.8 Abnormal levels of other serum enzymes; G43.909 Migraine, unspecified, not intractable, without status migrainosus; Z95.5 Presence of coronary angioplasty implant and graft; Z79.899 Other long term (current) drug therapy; Z79.01 Long term (current) use of anticoagulants; Z79.82 Long term (current) use of aspirin; Z82.49 Family history of ischemic heart disease and other diseases of the circulatory system; Z71.3 Dietary counseling and surveillance; Z98.51 Tubal ligation status; Z90.49 Acquired absence of other specified parts of digestive tract; Z68.36 Body mass index [BMI] 36.0-36.9, adult; Z87.42 Personal history of other diseases of the female genital tract; Z88.5 Allergy status to narcotic agent; Z88.8 Allergy status to other drugs, medicaments and biological substances; Z91.048 Other nonmedicinal substance allergy status
CPT/HCPCS: 36415; 71020; 80048; 80053; 80061; 82272; 82550; 82553; 83880; 84484; 85025; 85027; 85610; 85730; 93005; 93306; 93923; 93970; 94760; 96374; 96375; 99285